=== PATIENT | male | born 1985 | race Two or more races ===

== ENCOUNTER 2020-06-30 19:35 | Inpatient (IN) | payer MEDICAID ==
[~2020-06-30] VITALS: Ht 172.7 cm; Wt 61.9 kg
[~2020-06-30 19:35] MED LIST: CINA30 PO; FOLI1TAB33 PO; NEO/5DRO3 OP; SEVE800T8 PO; SIMV10TA97 PO
[2020-06-30] MEDS ORDERED: VANCOMYCIN 1 G PREMIX 200 ML IV ONE (20:00)
[2020-06-30] MEDS ORDERED: PIPERACILLIN/TAZ 3.375G PREMIX 50 ML IV ONE (20:00)
[2020-06-30] MEDS ORDERED: SODIUM CHLORIDE 0.9% 1,000 ML IV ONE (20:30)
[2020-06-30 21:32] LABS: BASOPHILS % 1.2 % (0.0-2.0); EOSINOPHILS % 0.9 % (0.0-5.0); HEMATOCRIT. 36.5 % (42.0-52.0); HEMOGLOBIN. 12.1 g/dL (14.0-18.0); LYMPHOCYTES % 26.6 % (20.0-50.0); MEAN CORPUSCULAR HEMOGLOBIN 30.1 pg (28.0-32.0); MEAN CORPUSCULAR VOLUME 90.8 fL (80.0-94.0); MEAN PLATELET VOLUME 7.7 fl (7.4-10.4); MONOCYTES % 5.8 % (2.0-8.0); NEUTROPHILS % 65.5 % (40.0-76.0); PLATELET 263 x1000/uL (130-400); RED BLOOD CELL COUNT 4.02 mill/uL (4.7-6.1); RED CELL DISTRIBUTION WIDTH 20.7 % (11.6-14.6)
[2020-06-30 21:38] LABS: CHLORIDE 103 mEq/L (98-107)
[2020-06-30 21:39] LABS: INR 1.1; PROTHROMBIN TIME 11.3 sec (9.6-11.0)
[2020-06-30 21:42] LABS: ETHANOL BLOOD < 10 mg/dL
[2020-06-30] MEDS ORDERED: DEXT 5%/0.9% NACL 1,000 ML IV ONE (22:15)
[2020-06-30 23:40] VITALS: BP 188/88
[2020-07-01] VITALS (7 sets, daily range): BP systolic 116–188; BP diastolic 70–89
[2020-07-01] MEDS ORDERED: HYDRALAZINE 20MG/ML VIAL IV PRN (00:30)
[2020-07-01] MEDS ORDERED: CLONIDINE 0.1MG TABLET PO PRN (00:30)
[2020-07-01] MEDS ORDERED: DEXTROSE 50% WATER 50ML SYRINGE IV PRN ×2 (01:15→09:45)
[2020-07-01] MEDS: BLOOD SUGAR DIAGNOSTIC STRIP TEST SCH ×2 (06:25→11:19)
[2020-07-01] MEDS: INSULIN LISPRO 100 UNITS/ML SUBCUT SCH ×2 (07:20→11:19)
[2020-07-01] MEDS ORDERED: PNEUMOCOCCAL 23-VAL P-SAC VAC 0.5 ML IM ONE (08:00)
[2020-07-01] MEDS ORDERED: INFLUENZA VACCINE 05/PF 0.5 ML VIAL IM ONE (08:00)
[2020-07-01] MEDS: SEVELAMER CARBONATE 800 MG TABLET PO SCH ×3 (08:20→12:29)
[2020-07-01] MEDS ORDERED: METOPROLOL TARTRATE 50MG TABLET PO SCH (09:00)
[2020-07-01] MEDS ORDERED: AMLODIPINE 10MG TABLET PO SCH (09:00)
[2020-07-01] MEDS ORDERED: ASPIRIN 81MG TABLET PO SCH (09:00)
[2020-07-01 09:16] LABS: HEMATOCRIT 34.6 % (42.0-52.0); HEMOGLOBIN 11.1 g/dL (14.0-18.0); MEAN CORPUSCULAR HEMOGLOBIN 29.2 pg (28.0-32.0); MEAN CORPUSCULAR VOLUME 91.1 fL (80.0-94.0); PLATELET 303 x1000/uL (130-400); RED BLOOD CELL COUNT 3.79 mill/uL (4.7-6.1); RED CELL DISTRIBUTION WIDTH 19.5 % (11.6-14.6)
[2020-07-01] MEDS ORDERED: LORAZEPAM 2MG/ML CPJ IV PRN (09:45)
[2020-07-01] MEDS ORDERED: DOCUSATE SODIUM 100MG CAPSULE PO PRN (09:45)
[2020-07-01] MEDS ORDERED: ENOXAPARIN 40MG/0.4ML SYR SUBCUT SCH (09:45)
[2020-07-01] MEDS ORDERED: MAGNESIUM/ALUMINUM HYDROXIDE/SIMETHICONE 30ML UDC PO PRN (09:45)
[2020-07-01] MEDS ORDERED: IPRATROPIUM/ALBUTEROL 0.5-3(2.5)MG/3ML NEB HHN PRN (09:45)
[2020-07-01] MEDS ORDERED: HYDROCODONE/ACETAMINOPHEN 5/325MG TABLET PO PRN (09:45)
[2020-07-01] MEDS ORDERED: ACETAMINOPHEN 325MG TABLET PO PRN (09:45)
[2020-07-01] MEDS ORDERED: LEVETIRACETAM 500MG TABLET PO SCH (10:00)
[2020-07-01] MEDS ORDERED: OMEPRAZOLE 20MG CAPSULE EXTENDED RELEASE PO SCH (10:00)
[2020-07-01] MEDS ORDERED: ENOXAPARIN 30MG/0.3ML SYR SUBCUT SCH (10:00)
[2020-07-01] MEDS ORDERED: BLOOD SUGAR DIAGNOSTIC STRIP TEST SCH (11:50)
[2020-07-01] MEDS ORDERED: ATORVASTATIN CALCIUM 20MG TABLET PO SCH (21:00)
== END 2020-07-01 13:40 | disposition left against medical advice (07) | DRG 420 ==
LOC: ER 19:35 → EDBEDREQ 20:06 → 3WST 21:34 → EDBEDREQTM 21:36 → EDBEDREQ 21:36 → ENRESERV 22:25
PROVIDERS: ADMIT Internal Medicine; ATTEND Internal Medicine
DX: E11.649 Type 2 diabetes mellitus with hypoglycemia without coma (principal); I12.0 Hypertensive chronic kidney disease with stage 5 chronic kidney disease or end stage renal disease; I95.9 Hypotension, unspecified; E11.22 Type 2 diabetes mellitus with diabetic chronic kidney disease; G90.8 Other disorders of autonomic nervous system; N18.6 End stage renal disease; G40.909 Epilepsy, unspecified, not intractable, without status epilepticus; E78.5 Hyperlipidemia, unspecified; Z53.21 Procedure and treatment not carried out due to patient leaving prior to being seen by health care provider; Z99.2 Dependence on renal dialysis; Z79.899 Other long term (current) drug therapy
CPT/HCPCS: 36415; 71045; 80048; 80053; 80305; 80320; 82962; 83036; 83605; 83880; 84145; 84484; 85025; 85027; 86850; 86900; 90686; 90732; 93005; 99291; J0360; J1650; J2543; J3370; J7030; J7042; G0480